=== PATIENT | male | born 1955 | race Two or more races ===

== ENCOUNTER 2020-02-01 08:30 | Inpatient (IN) | payer OTHER ==
[~2020-02-01] VITALS: Ht 170.2 cm; Wt 86.2 kg
[2020-02-01] MEDS ORDERED: PRILOSEC OTC20 MG PO (11:28)
[2020-02-01] MEDS ORDERED: LOSARTAN-HCTZ1 EAC2 PO (11:29)
[2020-02-01] MEDS ORDERED: TOPROL XL100 M1 PO (11:29)
[2020-02-09] MEDS ORDERED: ATORVASTATIN CA20 MG (08:09)
[2020-02-09] MEDS ORDERED: OMEGA-3 ACID ETH1 GM (08:09)
[2020-02-09] MEDS ORDERED: RESTORIL30 MG (08:09)
[2020-02-09] MEDS ORDERED: PAROXETINE HCL20 MG (08:09)
[2020-02-09] MEDS ORDERED: OMEPRAZOLE20 MG (08:09)
[2020-02-09] MEDS ORDERED: CLONAZEPAM0.5 MG (08:09)
[2020-02-12] MEDS ORDERED: INTESTINEX680 M1 PO (07:51)
[2020-02-12] MEDS ORDERED: HYOSCYAMINE0.125 M1 SL (07:51)
[2020-02-12] MEDS ORDERED: PROTONIX40 MG PO (07:51)
[2020-02-12] MEDS ORDERED: OXYC1TAB9 PO (07:51)
== END 2020-02-12 10:11 | disposition home or self-care (01) | DRG 331 ==
LOC: SURH 02-08 08:30 → O/R 02-08 16:00 → SURH 02-08 16:17
PROVIDERS: ADMIT Surgery; ATTEND Surgery
PROC: 4A1BXSH Monitoring of Gastrointestinal Vascular Perfusion using Indocyanine Green Dye, External Approach (ICD-10-PCS; 2020-02-08)
PROC: 0DTN4ZZ Resection of Sigmoid Colon, Percutaneous Endoscopic Approach (ICD-10-PCS; principal; 2020-02-08 10:30)
DX: K57.32 Diverticulitis of large intestine without perforation or abscess without bleeding (principal); I10 Essential (primary) hypertension; M54.5 Low back pain

== ENCOUNTER 2022-04-18 05:47 | Emergency (ER) | payer OTHER ==
[~2022-04-18] VITALS: Ht 170.2 cm; Wt 90.7 kg
[~2022-04-18 05:47] MED LIST: ATORVASTATIN CA20 MG; CLONAZEPAM0.5 MG; HYOSCYAMINE0.125 M1 SL; INTESTINEX680 M1 PO; LOSARTAN-HCTZ1 EAC2 PO; OMEGA-3 ACID ETH1 GM; OMEPRAZOLE20 MG; OXYC1TAB9 PO; PAROXETINE HCL20 MG; PRILOSEC OTC20 MG PO; PROTONIX40 MG PO; RESTORIL30 MG; TOPROL XL100 M1 PO
[2022-04-18] MEDS ORDERED: ZOFRAN8 MG PO (13:24)
[2022-04-18] MEDS ORDERED: PEPCID AC20 MG PO (13:24)
== END 2022-04-18 15:41 | disposition home or self-care (01) ==
LOC: ER 05:47
DX: R10.32 Left lower quadrant pain (principal); Z20.822 Contact with and (suspected) exposure to COVID-19

== ENCOUNTER 2022-08-08 05:40 | Inpatient (IN) | payer OTHER ==
[~2022-08-08] VITALS: Ht 170.2 cm; Wt 88.9 kg
[~2022-08-08 05:40] MED LIST changes: +PEPCID AC20 MG PO; +ZOFRAN8 MG PO
== END 2022-08-21 14:57 | disposition home or self-care (01) | DRG 339 ==
LOC: ER 05:40 → SURH 16:25
PROVIDERS: Surgery; ADMIT Specialist; ATTEND Specialist
PROC: BW211ZZ Computerized Tomography (CT Scan) of Abdomen and Pelvis using Low Osmolar Contrast (ICD-10-PCS; 2022-08-08)
PROC: 0DTJ4ZZ Resection of Appendix, Percutaneous Endoscopic Approach (ICD-10-PCS; principal; 2022-08-08 19:15)
PROC: 02HV33Z Insertion of Infusion Device into Superior Vena Cava, Percutaneous Approach (ICD-10-PCS; 2022-08-10)
PROC: BW211ZZ Computerized Tomography (CT Scan) of Abdomen and Pelvis using Low Osmolar Contrast (ICD-10-PCS; 2022-08-11)
PROC: 0W9J3ZZ Drainage of Pelvic Cavity, Percutaneous Approach (ICD-10-PCS; 2022-08-15)
PROC: BW211ZZ Computerized Tomography (CT Scan) of Abdomen and Pelvis using Low Osmolar Contrast (ICD-10-PCS; 2022-08-17)
DX: K35.32 Acute appendicitis with perforation, localized peritonitis, and gangrene, without abscess (principal); K56.0 Paralytic ileus; T81.43XA Infection following a procedure, organ and space surgical site, initial encounter; K90.49 Malabsorption due to intolerance, not elsewhere classified; K57.30 Diverticulosis of large intestine without perforation or abscess without bleeding; R59.0 Localized enlarged lymph nodes; I10 Essential (primary) hypertension; E78.5 Hyperlipidemia, unspecified; Z90.49 Acquired absence of other specified parts of digestive tract; B96.20 Unspecified Escherichia coli [E. coli] as the cause of diseases classified elsewhere

== ENCOUNTER 2023-06-27 03:44 | Emergency (ER) | payer OTHER ==
[~2023-06-27] VITALS: Ht 170.2 cm; Wt 88.9 kg
[2023-06-27] MEDS ORDERED: METOPROLOL SUC100 MG PO (03:49)
[2023-06-27] MEDS ORDERED: PAXIL20 MG PO (03:51)
[2023-06-27] MEDS ORDERED: GUAIFENESIN/DEXTROMETHORPHAN 100 MG/5 ML ML PO STA (08:13)
[2023-06-27] MEDS ORDERED: DEXAMETHASONE SODIUM PHOSPHATE 4 MG/ML VIAL IM STA (08:13)
[2023-06-27] MEDS ORDERED: ACETAMINOPHEN 500 MG GEL..CAP PO STA (08:14)
[2023-06-27 08:55] LABS: HEMATOCRIT 49.6 % (39.0-48.0); HEMOGLOBIN 16.9 g/dL (13-16.00); MEAN CORPUSCULAR HEMOGLOBIN 29.6 pg (27.00-32.0); RED BLOOD COUNT 5.71 M/uL (4.00-6.00); RED CELL DISTRIBUTION WIDTH 16.1 % (11.5-14.5)
[2023-06-27 09:30] LABS: PLATELET COUNT 213 K/uL (150-450)
[2023-06-27] MEDS ORDERED: ZYRTEC10 MG PO (09:37)
[2023-06-27] MEDS ORDERED: MUCINEX DM ER1 EAC1 PO (09:37)
[2023-06-27] MEDS ORDERED: ACETAMINOPHEN500 M1 PO (09:37)
[2023-06-27] MEDS ORDERED: MEDROLPACK PO (09:37)
[2023-06-27] MEDS ORDERED: ZITHROMAX500 MG PO (09:42)
== END 2023-06-27 09:46 | disposition home or self-care (01) ==
LOC: ER 03:44
PROVIDERS: General Practice
DX: U07.1 COVID-19 (principal); F41.8 Other specified anxiety disorders; I10 Essential (primary) hypertension
CPT/HCPCS: 36415; 96372; 99282; J1100